=== PATIENT | female | born 1965 | race Caucasian/White ===

== ENCOUNTER 2016-11-07 18:21 | Emergency (ER) | payer OTHER ==
[2016-11-07 18:30] VITALS: BP 145/99; PULSE 86; RESP 16; TEMP 98.2; O2SAT 97
--- NOTE | 2016-11-07 18:46 | EDPHY ---
H & P Time Seen by Provider: 11/07/16 18:32 HPI/ROS: CHIEF COMPLAINT: Rash HISTORY OF PRESENT ILLNESS: 50-year-old female postop day 3 post L4-L5 lumbar decompression surgery performed the [facility] states that on postop day 2 she noticed a highly pruritic rash to her chest, flank, groin. The rash is not tender. She denies systemic symptoms. Appears to be symmetrical. She denies: Fever, chills, intraoral involvement, genitalia involvement, nausea, vomiting, ocular irritation . She called [facility] may recommended oral Benadryl which she has taken with no improvement. Regarding her surgical site this appears to be healing well and she is feeling improvement in her back pain and lower extremity symptoms. REVIEW OF SYSTEMS: A ten point review of systems was performed and is negative with the exception of the items mentioned in the HPI PAST MEDICAL & SURGICAL HISTORY: postop day 3 post lumbar decompression at [facility] SOCIAL HISTORY: PHYSICAL EXAM (Prior to examination, patient consented to physical exam, hands were washed and my usual and customary physical exam procedures followed) 1) GENERAL: Well-developed, well-nourished, alert and oriented. Appears nontoxic. 2) HEAD: Normocephalic, atraumatic 3) HEENT: Pupils equal, round, reactive to light bilaterally. Sclera anicteric. Nasopharynx, oropharynx, clear, no lesions. No intraoral lesions 4) NECK: Full range of motion, no meningeal signs. 5) LUNGS: Clear auscultation bilaterally, no wheezes, no rhonchi, no retractions. 6) HEART: Regular rate and rhythm, no murmur, no heave, no gallop. 7) ABDOMEN: No guarding, no rebound, no focal tenderness, 8) MUSCULOSKELETAL: Moving all extremities, no focal areas of tenderness, no obvious trauma. No peripheral edema or discoloration. 9) BACK: the patient's lumbar operative site appears well with no dehiscence no drainage no rash. . 10) SKIN: On the patient's chest abdomen and flank and on her groin following a very discrete orientation and demarcation she has a macular erythematous nontender rash. There are no vesicles. It is not followed dermatomal distribution. 11) Psychiatric: Patient is oriented X 3, there is no agitation. DIFFERENTIAL DIAGNOSIS: in no particular include but limited to Quintero- J Carlos syndrome, contact dermatitis, cellulitis Smoking Status: Never smoked Constitutional: Initial Vital Signs Temperature (C) 36.8 C 11/07/16 18:26 Heart Rate 86 11/07/16 18:26 Respiratory Rate 16 11/07/16 18:26 Blood Pressure 145/99 H 11/07/16 18:26 O2 Sat (%) 97 11/07/16 18:26 O2 Delivery Mode Room Air Allergies/Adverse Reactions: acetaminophen [From Vicodin] Allergy (Verified 04/09/12 18:06) hydrocodone bitartrate [From Vicodin] Allergy (Verified 04/09/12 18:06) hydromorphone HCl [From Dilaudid] Allergy (Verified 04/09/12 18:06) Penicillins Allergy (Verified 04/09/12 18:05) Home Medications: Medication Instructions Recorded HYOSCYAMINE SULFATE [Levsin-Sl] 0.125 mg SL 04/09/12 Ondansetron Odt [Zofran Odt 4 mg 4 mg PO Q4PRN PRN #7 tab 04/09/12 (*)] Sumatriptan Succinate [Imitrex] 25 mg PO 04/09/12 oxyCODONE/APAP 5/325 [Percocet 1 - 2 tab PO Q4PRN PRN #11 tab 04/09/12 5/325 (*)] Famotidine [Pepcid 20 MG (*)] 20 mg PO BID #15 tab 11/07/16 diphenhydrAMINE [Benadryl 25 MG 25 mg PO Q6 #15 tab 11/07/16 (*)] MDM/Departure - MDM ED Course/Re-evaluation: Given the distribution of the patient's rash for description of a highly pruritic nontender rash in the orientation of the rash, we discussed possibility this could be secondary to contact dermatitis possibly related to the perioperative preparation for the patient. I do not think that antibiotics are indicated. Do not think that steroids are indicated. We discussed supportive therapy such as cold packs, H1 H2 blockers. We discussed the importance of follow-up should her rash worsen or should she develop any constitutional symptoms. Both and patient feel comfortable with this discharge plan I believe \them to have decision-making capacity - Depart Disposition: Home, Routine, Self-Care Clinical Impression: Contact dermatitis Qualifiers: Contact dermatitis type: allergic Contact dermatitis trigger: unspecified trigger Qualified Code(s): L23.9 - Allergic contact dermatitis, unspecified cause Condition: Good Instructions: Contact Dermatitis (ED) Additional Instructions: Return to the emergency department immediately if you developed worsening symptoms or new symptoms. Prescriptions: diphenhydrAMINE [Benadryl 25 MG (*)] 25 mg PO Q6 #15 tab Famotidine [Pepcid 20 MG (*)] 20 mg PO BID #15 tab Referrals: Joe Sands MD [Primary Care Provider] - 11/10/16
== END 2016-11-07 19:07 | disposition home or self-care (01) ==
DX: L23.9 Allergic contact dermatitis, unspecified cause (principal)

== ENCOUNTER → 2017-10-29 | Outpatient (CLI) | payer OTHER | LOC: BMCIMAGING 07:55 | PROVIDERS: ATTEND Obstetrics & Gynecology | DX: R10.2 Pelvic and perineal pain (principal) ==

== ENCOUNTER → 2017-11-16 | Outpatient (CLI) | payer OTHER ==
[~2017-11-16] MED LIST: IOPAMIDOL (ISOVUE-300) 100 ML BTL ONE
== END ==
LOC: FIMAGING 13:22
PROVIDERS: ATTEND Internal Medicine
DX: R10.30 Lower abdominal pain, unspecified (principal); K59.00 Constipation, unspecified
CPT/HCPCS: Q9967

== ENCOUNTER → 2017-12-01 | Outpatient (CLI) | payer OTHER | LOC: BMCIMAGING 07:44 | PROVIDERS: ATTEND Obstetrics & Gynecology | DX: Z12.31 Encounter for screening mammogram for malignant neoplasm of breast (principal) ==

== ENCOUNTER → 2017-12-03 | Outpatient (CLI) | payer OTHER | LOC: BMCIMAGING 10:08 | PROVIDERS: ATTEND Obstetrics & Gynecology | DX: R92.8 Other abnormal and inconclusive findings on diagnostic imaging of breast (principal) ==

== ENCOUNTER → 2017-12-31 | Outpatient (CLI) | payer OTHER ==
[~2017-12-31] MED LIST changes: +IOPAMIDOL (ISOVUE-300) 150 ML BTL ONE
== END ==
LOC: FIMAGING 09:13
PROVIDERS: ATTEND Urology
DX: R31.29 Other microscopic hematuria (principal)
CPT/HCPCS: Q9967

== ENCOUNTER → 2018-07-05 | Outpatient (CLI) | payer OTHER | LOC: BMCIMAGING 15:02 | PROVIDERS: ATTEND Urology | DX: R31.29 Other microscopic hematuria (principal) ==